=== PATIENT | female | born 2000 | race Caucasian/White ===

== ENCOUNTER 2023-01-17 19:54 | Emergency (ER) | payer OTHER ==
[2023-01-17] MEDS ORDERED: Ibuprofen 200 MG TAB ONE (21:02)
== END 2023-01-17 21:48 | disposition home or self-care (01) ==
LOC: CSHERS 19:54
DX: S90.31XA Contusion of right foot, initial encounter (principal); S80.01XA Contusion of right knee, initial encounter; V89.2XXA Person injured in unspecified motor-vehicle accident, traffic, initial encounter